=== PATIENT | female | born 1980 | race Caucasian/White ===

== ENCOUNTER → 2021-08-07 14:07 | Outpatient (CLI) | payer SELFPAY | PROVIDERS: Visit Provider Student in an Organized Health Care Education/Training Program | DX: Z01.812 Encounter for preprocedural laboratory examination (principal); Z11.52 Encounter for screening for COVID-19 | CPT/HCPCS: C9803; U0003; U0005 ==

== ENCOUNTER → 2021-08-14 12:54 | Outpatient (CLI) | payer MEDICAID, SELFPAY | PROVIDERS: Visit Provider Physician Assistant | DX: Z01.812 Encounter for preprocedural laboratory examination (principal); Z20.822 Contact with and (suspected) exposure to COVID-19; I67.1 Cerebral aneurysm, nonruptured | CPT/HCPCS: C9803; U0003; U0005 ==